=== PATIENT | female | born 1935 | race Caucasian/White ===

== ENCOUNTER → 2017-11-01 | Day surgery (SDC) | payer OTHER, MEDICARE ==
[~2017-11-01] VITALS: Ht 154.9 cm; Wt 90.7 kg
[~2017-11-01] MED LIST: BIOTIN1000 MCG PO; CALCIUM 600600 M1 PO; COZAAR 100MG T100 MG PO; DICLOFENAC SOD75 MG PO; GABAPENTIN400 MG PO; HYZAAR 25 MG-101 TAB; HYZAAR 25 MG-101 TAB PO; MULTIVITAMIN1 TAB PO; OMEPRAZOLE D/R20 MG PO; PERCOCET 325 MG1 TA2 PO; SIMVASTATIN20 MG PO; SYSTANE LUBRICAN5 ML OP; VALTREX 500MG500 MG PO; VITAMIN D1000 IU PO
--- NOTE | 2017-11-03 11:33 | Operative Report ---
Operative/Inv Procedure Report Surgery Date: 11/01/17 Name of Procedure: Open repair of incarcerated incisional hernia supraumbilical port site with 6.[address] preperitoneal mesh Pre-Operative Diagnosis: Incarcerated incisional hernia, supraumbilical. Rectus diastases Post-Operative Diagnosis: Same Estimated Blood Loss: none Surgeon/Services Tech: Zohaib ZAVALA,Giovanni Francisco PA-C Anesthesia: general endotracheal tube IV Fluids: 1000 mL crystalloid Implants: 6.[address] mesh Drains: None Specimens: None Complications: None Condition: Excellent stable Operative Indication: Yelitza is a 81-year-old female who's had laparoscopic cholecystectomy and developed a herniation at her supraumbilical port site which is bowel containing. She presents for elective repair. Operative/Procedure Note Note: The patient is taken to the operating room and placed on the operating table in supine position. Following an awake timeout she underwent induction of general endotracheal anesthesia uneventfully. The abdomen was then widely with ChloraPrep and draped in usual sterile fashion. She was placed in slight Trendelenburg position. The patient received IV prior to skin incision at Venodyne boots in place and pumping arms extended at her sides. A curvilinear incision was then made suprapubically after infiltrating local anesthetic. This was done through her old laparoscopic cholecystectomy scar. We carried the dissection down into the subcutaneous where we quickly identified the herniated material and dissected off the back of the umbilical dermis and from the surrounding subcutaneous tissue down to the clark's point fascia. The clark's point fascia was incised circumferentially around the neck of the herniated contents in the thin veil of attenuated fascia peeled off. I then attempted to dissected the sac from the margin of the defect which was about 2 cm. As expected, there were adhesions to the peritoneum at the margin and I entered into the peritoneum and several areas and ultimately decided to open the peritoneum fully. Here we identified incarcerated omentum adherent to the peritoneum of the sac. This was taken down carefully and dunked back into the peritoneal cavity. I then amputated the redundant sac.I then was able to circumferentially created a preperitoneal pocket several centimeters back from each direction. I then closed the peritoneum with a running 3-0 Vicryl suture. I templated the space with a plastic ruler and saw that it would accommodate a medium size Ventralex mesh so a 6.[address] mesh was selected and moistened and placed into the space orienting the tabs East and West. The tabs were cut sequentially and secured to the undersurface of the fascia which I cleared off circumferentially from the subcutaneous fat. 2-0 Maxon was used for this. The clark's point fascia was then closed with multiple [id number] sutures of 0 Maxon reapproximating nicely without undue tension. Now interrupted 3-0 Vicryl sutures were used to reapproximate the subcutaneous using 2 sutures on the back of the umbilical dermis to re-create the concavity of the umbilicus which had been disrupted by the hernia and the dissection. 4-0 Monocryl running subcuticular skin closure was used followed by Steri-Strips 4 x 4 and OpSite. A bacitracin soaked cottonball was placed in the umbilicus as well and abdominal binder placed over. Patient tolerated the procedure well and was taken to the recovery room extubated in stable condition with all sponge needle and management count confirmed as correct 2 at the completion of the case. Findings: 2 cm defect with incarcerated omentum. Preperitoneal plane able to be established Discharge Disposition: PACU
== END ==
LOC: STS 02:24
DX: K43.0 Incisional hernia with obstruction, without gangrene (principal); K66.0 Peritoneal adhesions (postprocedural) (postinfection); I10 Essential (primary) hypertension; K21.9 Gastro-esophageal reflux disease without esophagitis; N39.41 Urge incontinence; E66.9 Obesity, unspecified; Z68.38 Body mass index [BMI] 38.0-38.9, adult
CPT/HCPCS: C9399; J0131; J0690